=== PATIENT | male | born 1940 ===

== ENCOUNTER → 2021-06-29 07:33 | Outpatient (CLI) | payer OTHER | END | disposition home or self-care (01) | LOC: NUCLEAR 07:00 | PROVIDERS: ATTEND Internal Medicine Cardiovascular Disease | DX: I25.6 Silent myocardial ischemia (principal); I50.1 Left ventricular failure, unspecified; I25.9 Chronic ischemic heart disease, unspecified | CPT/HCPCS: 78452; 93017; A9500 ==